=== PATIENT | female | born 1955 | race Caucasian/White ===

== ENCOUNTER 2021-09-18 04:54 | Emergency (ER) | payer MEDICARE, BC ==
[2021-09-18] MEDS ORDERED: Cyclobenzaprine 10 MG Tab PO ONE (05:29)
[2021-09-18] MEDS ORDERED: Ketorolac 30 MG/ML SDV IM ONE (05:29)
== END 2021-09-18 06:27 | disposition home or self-care (01) ==
LOC: JP.ED 04:54
DX: R07.81 Pleurodynia (principal); Z86.16 Personal history of COVID-19
CPT/HCPCS: 96372; 99283; A9270; J1885